=== PATIENT | male | born 1970 | race Caucasian/White ===

== ENCOUNTER 2020-10-13 15:44 | Observation (INO) | payer OTHER ==
[2020-10-13 16:26] LABS: Basophils # (A) 0.1 k/uL (0-0.2); Basophils % (A) 1 %; Eosinophils # (A) 0.3 k/uL (0-0.7); Eosinophils % (A) 3 %; HGB 14.9 gm/dL (13.0-17.5); Lymphocytes # (A) 3.2 k/uL (1.0-4.8); Lymphocytes % (A) 36 %; MCH 30.1 pg (25.0-35.0); MCHC 33.9 g/dL (31.0-37.0); MCV 88.9 fL (80.0-100.0); Mean Platelet Volume 7.6; Monocytes # (A) 0.5 k/uL (0-1.0); Monocytes % (A) 6 %; Neutrophils # (A) 4.8 k/uL (1.3-7.7); Neutrophils % (A) 53 %; Platelet Count 262 k/uL (150-450); RBC 4.95 m/uL (4.30-5.90); RDW 14.2 % (11.5-15.5); WBC 9.1 k/uL (3.8-10.6)
[2020-10-13] MEDS ORDERED: ASPIRIN 325 MG TAB PO STA (16:33)
--- NOTE | 2020-10-13 16:35 | ED ---
General Adult HPI - General Chief complaint: Dizziness Stated complaint: dizzy,SOB Time Seen by Provider: 10/13/20 15:56 Source: patient, RN notes reviewed, old records reviewed Mode of arrival: wheelchair Limitations: no limitations - History of Present Illness Initial comments: 50-year-old male presenting for evaluation of lightheadedness. Patient is 7 weeks status post stenting at outside facility. He's been on dual antiplatelet,and Coreg. He states that over the past several weeks his had medication issues, he stated he became ALLERGIC to ticagrelor, and has discontinued this approximately 48 hours ago. He also stopped his Coreg due to ALLERGIC symptoms. Patient states states he had difficulty breathing, facial swelling. He is currently only on aspirin. He denies worsening chest pain. He's had some chest tightness since his stent which occurred several weeks ago. He states he feels lightheaded and that he might pass out. He has not had any known loss of consciousness. He denies fever or chills. Denies cough or dyspnea. Denies nausea vomiting or diarrhea. - Related Data Home Medications Medication Instructions Recorded Confirmed Aspirin EC [Ecotrin Low Dose] 81 mg PO HS 10/13/20 10/13/20 Prasugrel [Effient] 10 mg PO HS 10/13/20 10/13/20 Ranolazine [Ranolazine ER] 333.3 mg PO BID 10/13/20 10/13/20 lisinopriL [Zestril] 2.5 mg PO HS 10/13/20 10/13/20 Allergies Allergy/AdvReac Type Severity Reaction Status Date / Time atorvastatin [From Lipitor] Allergy Unknown Verified 10/13/20 16:56 carvedilol [From Coreg] Allergy Unknown Verified 10/13/20 15:52 ticagrelor [From Brilinta] Allergy Unknown Verified 10/13/20 15:52 Review of Systems ROS Statement: Those systems with pertinent positive or pertinent negative responses have been documented in the HPI. ROS Other: All systems not noted in ROS Statement are negative. Past Medical History Past Medical History: Atrial Fibrillation, Hyperlipidemia, Hypertension, Myocardial Infarction ([place]) History of Any Multi-Drug Resistant Organisms: None Reported Past Surgical History: Heart Catheterization With Stent Additional Past Surgical History / Comment(s): MAKER STENT PLACED Past Psychological History: PTSD Smoking Status: Former smoker Past Alcohol Use History: Occasional Past Drug Use History: None Reported General Exam Limitations: no limitations General appearance: alert, in no apparent distress Head exam: Present: atraumatic, normocephalic Eye exam: Present: normal appearance, PERRL ENT exam: Present: normal exam Neck exam: Present: normal inspection. Absent: tenderness, meningismus Respiratory exam: Present: normal lung sounds bilaterally. Absent: respiratory distress, wheezes, rales Cardiovascular Exam: Present: regular rate, normal rhythm GI/Abdominal exam: Present: soft. Absent: distended, tenderness, guarding Extremities exam: Present: normal inspection, normal capillary refill. Absent: pedal edema, calf tenderness Neurological exam: Present: alert, oriented X3, CN II-XII intact. Absent: motor sensory deficit Psychiatric exam: Present: normal affect Skin exam: Present: warm, dry, intact. Absent: cyanosis, diaphoretic Course Vital Signs 10/13/20 10/13/20 15:47 16:51 Temperature 98.2 F Pulse Rate 72 65 Respiratory 16 18 Rate Blood Pressure 140/85 133/89 O2 Sat by Pulse 96 97 Oximetry EKG Findings - EKG Comments: EKG Findings:: EKG: Normal sinus rhythm, rate of 70, UT interval 158, QRS duration 88, QTC 427, no ST segment elevation Medical Decision Making - Medical Decision Making 50-year-old male presenting for evaluation of lightheadedness, chest pain, and inability to tolerate his medications that he had been prescribed status post stenting which occurred at an outside facility a proximally 7 weeks ago. He's been off of his beta adelaide and off of his Brinlinta, for the past 2 days. He is given aspirin and Plavix in the emergency department. He has EKG which shows sinus rhythm no ST segment elevation or definitive signs of ischemia. Chest x- rays negative for acute cardiopulmonary disease. He has a normal CBC, normal CMP, negative troponin. Chest x-ray is negative for acute cardiopulmonary disease. Patient will be kept in observation, while his antiplatelet medications were established, cardiology will be placed on consult. Echo will be obtained regarding his near syncope and lightheadedness. Case discussed with Dr. Tsai who will admit. - Lab Data Result diagrams: 10/13/20 16:18 10/13/20 16:18 Lab Results 10/13/20 10/13/20 10/13/20 Range/Units 16:18 16:18 16:18 WBC 9.1 (3.8-10.6) k/uL RBC 4.95 (4.30-5.90) m/uL Hgb 14.9 (13.0-17.5) gm/dL Hct 44.0 (39.0-53.0) % MCV 88.9 (80.0-100.0) fL MCH 30.1 (25.0-35.0) pg MCHC 33.9 (31.0-37.0) g/dL RDW 14.2 (11.5-15.5) % Plt Count 262 (150-450) k/uL MPV 7.6 Neutrophils % 53 % Lymphocytes % 36 % Monocytes % 6 % Eosinophils % 3 % Basophils % 1 % Neutrophils # 4.8 (1.3-7.7) k/uL Lymphocytes # 3.2 (1.0-4.8) k/uL Monocytes # 0.5 (0-1.0) k/uL Eosinophils # 0.3 (0-0.7) k/uL Basophils # 0.1 (0-0.2) k/uL PT 9.7 (9.0-12.0) sec INR 0.9 (<1.2) APTT 25.0 (22.0-30.0) sec Sodium 138 (137-145) mmol/L Potassium 4.3 (3.5-5.1) mmol/L Chloride 104 (98-107) mmol/L Carbon Dioxide 25 (22-30) mmol/L Anion Gap 9 mmol/L BUN 17 (9-20) mg/dL Creatinine 0.87 (0.66-1.25) mg/dL Est GFR (CKD-EPI)AfAm >90 (>60 ml/min/1.73 sqM) Est GFR (CKD-EPI)NonAf >90 (>60 ml/min/1.73 sqM) Glucose 91 (74-99) mg/dL Calcium 9.8 (8.4-10.2) mg/dL Magnesium 2.3 (1.6-2.3) mg/dL Total Bilirubin 0.4 (0.2-1.3) mg/dL AST 41 (17-59) U/L ALT 60 H (4-49) U/L Alkaline Phosphatase 64 (38-126) U/L Troponin I (0.000-0.034) ng/mL NT-Pro-B Natriuret Pep pg/mL Total Protein 7.6 (6.3-8.2) g/dL Albumin 4.5 (3.5-5.0) g/dL 10/13/20 10/13/20 Range/Units 16:18 16:18 WBC (3.8-10.6) k/uL RBC (4.30-5.90) m/uL Hgb (13.0-17.5) gm/dL Hct (39.0-53.0) % MCV (80.0-100.0) fL MCH (25.0-35.0) pg MCHC (31.0-37.0) g/dL RDW (11.5-15.5) % Plt Count (150-450) k/uL MPV Neutrophils % % Lymphocytes % % Monocytes % % Eosinophils % % Basophils % % Neutrophils # (1.3-7.7) k/uL Lymphocytes # (1.0-4.8) k/uL Monocytes # (0-1.0) k/uL Eosinophils # (0-0.7) k/uL Basophils # (0-0.2) k/uL PT (9.0-12.0) sec INR (<1.2) APTT (22.0-30.0) sec Sodium (137-145) mmol/L Potassium (3.5-5.1) mmol/L Chloride (98-107) mmol/L Carbon Dioxide (22-30) mmol/L Anion Gap mmol/L BUN (9-20) mg/dL Creatinine (0.66-1.25) mg/dL Est GFR (CKD-EPI)AfAm (>60 ml/min/1.73 sqM) Est GFR (CKD-EPI)NonAf (>60 ml/min/1.73 sqM) Glucose (74-99) mg/dL Calcium (8.4-10.2) mg/dL Magnesium (1.6-2.3) mg/dL Total Bilirubin (0.2-1.3) mg/dL AST (17-59) U/L ALT (4-49) U/L Alkaline Phosphatase (38-126) U/L Troponin I <0.012 (0.000-0.034) ng/mL NT-Pro-B Natriuret Pep 51 pg/mL Total Protein (6.3-8.2) g/dL Albumin (3.5-5.0) g/dL Disposition Clinical Impression: Near syncope, CAD (coronary artery disease) Disposition: ADMITTED IP TO THIS [facility] Condition: Stable Is patient prescribed a controlled substance at d/c from ED?: No Referrals: Maira Hogan MD [Primary Care Provider] - 1-2 days Decision to Admit Reason: Admit from EC Decision Date: 10/13/20 Decision Time: 17:40
--- NOTE | 2020-10-13 16:35 | XR ---
EXAMINATION TYPE: XR chest 2V DATE OF EXAM: 10/13/2020 COMPARISON: 10/05/2012. HISTORY: Shortness of breath. TECHNIQUE: Frontal and lateral views of the chest are obtained. FINDINGS: There is no focal air space opacity, pleural effusion, or pneumothorax seen. The cardiac silhouette size is within normal limits. The osseous structures are intact. IMPRESSION: No acute cardiopulmonary process.
[2020-10-13 16:39] LABS: ALT 60 U/L (4-49); AST 41 U/L (17-59); African American GFR (CKD) >90 (>60 ml/min/1.73 sqM); Albumin 4.5 g/dL (3.5-5.0); Alkaline Phosphatase 64 U/L (38-126); Anion Gap 9 mmol/L; Blood Urea Nitrogen 17 mg/dL (9-20); Calcium 9.8 mg/dL (8.4-10.2); Carbon Dioxide 25 mmol/L (22-30); Chloride 104 mmol/L (98-107); Glucose 91 mg/dL (74-99); Magnesium 2.3 mg/dL (1.6-2.3); Non-African American GFR(CKD) >90 (>60 ml/min/1.73 sqM); Potassium 4.3 mmol/L (3.5-5.1); Sodium 138 mmol/L (137-145); Total Bilirubin 0.4 mg/dL (0.2-1.3); Total Protein 7.6 g/dL (6.3-8.2)
[2020-10-13 16:44] LABS: INR 0.9 (<1.2); Prothrombin Time 9.7 sec (9.0-12.0)
[2020-10-13] MEDS ORDERED: CLOPIDOGREL 75 MG TAB PO STA (17:14)
[2020-10-13] MEDS ORDERED: NALOXONE 0.4 MG/ML 1 ML VIAL IV PRN (17:32)
[2020-10-13] MEDS ORDERED: ACETAMINOPHEN TAB 325 MG TAB PO PRN (17:32)
[2020-10-13] MEDS ORDERED: ASPIRIN 81 MG PO SCH (21:00)
--- NOTE | 2020-10-14 03:37 | P.HPIM ---
History of Present Illness H&P Date: 10/13/20 The patient is a 50-year-old male with a PMH of coronary artery disease status post PCI July 2020, A. fib (not on anticoagulation), hypertension, and hyperlipidemia who presented to the emergency room with multiple complaints. The patient reports that following his cardiac catheterization in July, that he was discharged home on Ranexa, Brilinta, aspirin, lisinopril 2.5, and carvedilol. After returning home, he noticed that each time he would take his carvedilol in the morning, that he would feel dizzy and lightheaded and fatigued. He subsequently stopped taking the carvedilol 3 days following discharge. He reports continued intermittent shortness of breath and lightheadedness which he initially attributed to Brilinta. During that time, he also took an old dose of lisinopril 20 mg ( by 6 months) for 3-4 days which also made him feel lightheaded. He subsequently went back to his original dose of 2.5 thereafter. He contacted his licensed reactor operator's office who switched his Brilinta to Effient. The patient reports that he continued having intermittent shortness of breath along wit facial and neck swelling which gradually worsened until he stopped all his medications 4 days ago. The patient however became concerned since he had been told that he needed to continue taking his antiplatelets due to his stent. He reports ongoing exertional dizziness, which resolves with rest. Denied additional complaints. Denied chest discomfort, nausea, vomiting, headaches, visual disturbances, palpitations, abdominal pain, diarrhea. He underwent an extensive evaluation in the emergency room which was all reviewed. EKG had revealed normal sinus rhythm at [address]/T-wave changes noted as reviewed by me. Chest x-ray was unremarkable. Laboratory evaluation was also reviewed and was remarkable for an ALT of 60 with troponin less than 0.012. Review of Systems Pertinent positives and negatives as discussed in HPI, a complete review of systems was performed and all other systems are negative. Past Medical History Past Medical History: Atrial Fibrillation, Hyperlipidemia, Hypertension, Myocar dial Infarction ([place]) History of Any Multi-Drug Resistant Organisms: None Reported Past Surgical History: Heart Catheterization With Stent Additional Past Surgical History / Comment(s): MAKER STENT PLACED Past Psychological History: PTSD Smoking Status: Former smoker Past Alcohol Use History: Occasional Past Drug Use History: None Reported Medications and Allergies Home Medications Medication Instructions Recorded Confirmed Type Aspirin EC [Ecotrin Low Dose] 81 mg PO HS 10/13/20 10/13/20 History Prasugrel [Effient] 10 mg PO HS 10/13/20 10/13/20 History Ranolazine [Ranolazine ER] 333.3 mg PO BID 10/13/20 10/13/20 History lisinopriL [Zestril] 2.5 mg PO HS 10/13/20 10/13/20 History Allergies Allergy/AdvReac Type Severity Reaction Status Date / Time atorvastatin [From Lipitor] Allergy Unknown Verified 10/13/20 16:56 carvedilol [From Coreg] Allergy Unknown Verified 10/13/20 15:52 ticagrelor [From Brilinta] Allergy Unknown Verified 10/13/20 15:52 Physical Exam Vitals: Vital Signs Temp Pulse Resp BP Pulse Ox 10/13/20 18:00 69 18 127/87 97 10/13/20 17:00 63 18 97 10/13/20 16:51 65 18 133/89 97 10/13/20 15:47 98.2 F 72 16 140/85 96 Intake and Output 10/13/20 10/13/20 10/13/20 06:59 14:59 22:59 Other: Weight 111.13 kg General: non toxic, no distress, appears at stated age, obese Derm: no unusual rashes/lesions no unusual ecchymoses, warm, dry Head: atraumatic, normocephalic, symmetric Eyes: EOMI, no lid lag, anicteric sclera, pupils equal round reactive to light ENT: Nose and ears atraumatic, no thrush, no pharyngeal erythema Neck: No thyromegaly, no cervical lymphadenopathy, trachea midline, supple Mouth: no lip lesion, mucus membranes moist Cardiovascular: S1S2 reg, no murmur, positive posterior tibial pulse bilateral, no edema, capillary refill less than 2 seconds Lungs: CTA bilateral, no rhonchi, no rales , no accessory muscle use Abdominal: soft, nontender to palpation, no guarding, no appreciable organomegaly, normal bowel sounds Ext: no gross muscle atrophy, muscle strength 5 out of 5 in all 4 extremities grossly, no contractures, Neuro: CN II-XI grossly intact, light touch intact all 4 extremities, finger to nose within normal limits, Psych: Alert, oriented, appropriate affect Results CBC & Chem 7: 10/13/20 16:18 10/13/20 16:18 Labs: Abnormal Lab Results - Last 24 Hours (Table) 10/13/20 Range/Units 16:18 ALT 60 H (4-49) U/L Assessment and Plan Plan: Shortness of breath, lightheadedness, unclear etiology -Possibly secondary to bradycardia secondary to beta-blockade vs side-effect of Renexa vs borderline BP -Cardiology consult -Continue Aspirin and Plavix for now -Hold off on remaining meds for now -Obtain Echo Facial swelling, concerning for angioedema -Hold off on ALISON-Is for now -Check CRP, ESR, C4 levels Coronary artery disease status post recent PCI -Continue with aspirin and Plavix Hypertension -Borderline BP -Hold off on any antihypertensives at this time DVT prophylaxis -IPCDs The patient is admitted with an anticipated less than 2 midnight stay for evaluation of dizziness CODE STATUS:Full Code Discussed with: brooks Anticipated discharge date: in am Anticipated discharge place: home A total of 40 minutes was spent on the care of this complex patient more than 50% of the time was spent in counseling and care coordination.
[2020-10-14] MEDS ORDERED: RANOLAZINE 1000 MG PO SCH (09:00)
[2020-10-14 09:31] LABS: C Reactive Protein 1.1 mg/dL (0.0-0.8)
--- NOTE | 2020-10-14 10:04 | P.CRDCN ---
History of Present Illness History of present illness: light headed and felt like he would pass out if he got up and moved more than 40 feet HISTORY OF PRESENTING ILLNESS This is a pleasant 50-year-old male past medical history significant for area artery disease status post recent PCI in the setting of an acute [place], hypertension, dyslipidemia and former nicotine dependence. He follows in the office with a tip printer in [place]. We have been asked to see in consultation for near syncope. The patient is somewhat of a poor historian. He is able to tell is that he recently had a heart attack and got a stent put in. He states he has had multiple episodes of feeling dizzy or lightheaded mostly with exertion. He states there was an episode about one month ago when he realized he was taking the wrong dose of his lisinopril. It is unclear exactly what was going on. The patient states he was prescribed 2.5 mg but was taking 20 mg. Then on he had a reaction to one of his medications. He states he felt swollen in his head near his cheondoism region and he felt like his throat was tight. He had no specific rash but felt overall general flushing. He states he has not ever actually passed out but he feels like he is going to. He states if he were to get up and walk the halls for 3-4 minutes he would start to feel lightheaded and have to sit down. He denies symptoms of chest pain or shortness of breath. He has no palpitations. DIAGNOSTICS EKG reveals sinus mechanism with no acute ST or T wave abnormalities noted. Telemetry tracings indicate sinus mechanism with no arrhythmia or pauses. Chest xray today for an acute cardiopulmonary process. Laboratory reviewed, CBC unremarkable, sodium 138, potassium 4.3, creatinine 0.87, magnesium 2.3, cardiac enzymes negative 3, proBNP 51 and CRP 1.1. Current cardiac medications include aspirin 81 mg daily, Effient 10 mg daily, Ranexa 333.3 mg twice a day and lisinopril 2.5 mg daily. REVIEW OF SYSTEMS At the time of my exam: CONSTITUTIONAL: Denies fever or chills. CARDIOVASCULAR: Denies chest pain, shortness of breath, orthopnea, PND or palpitations. RESPIRATORY: Denies cough. GASTROINTESTINAL: Denies abdominal pain, diarrhea, constipation, nausea or v omiting. MUSCULOSKELETAL: Denies myalgias. NEUROLOGIC: Denies numbness, tingling, headacbe or weakness. ENDOCRINE: Denies fatigue, weight change, polydipsia or polyurina. GENITOURINARY: Denies burning, hematuria or urgency with micturation. HEMATOLOGIC: Denies history of anemia or bleeding. PHYSICAL EXAMINATION Blood pressure 119/79 heart rate 71 afebrile and maintaining oxygen saturation on room air. CONSTITUTIONAL: No apparent distress. HEENT: Head is normocephalic. Pupils are equal, round. Sclerae anicteric. Mucous membranes of the mouth are moist. No JVD. No carotid bruit. CHEST EXAMINATION: Lungs are clear to auscultation. No chest wall tenderness is noted on palpation or with deep breathing. HEART EXAMINATION: Regular rate and rhythm. S1, S2 heard. No murmurs, gallops or rub. ABDOMEN: Soft, nontender. Positive bowel sounds. EXTREMITIES: 2+ peripheral pulses, no lower extremity edema and no calf tenderness. NEUROLOGIC EXAMINATION: Patient is awake, alert and oriented x3. ASSESSMENT Near syncope Coronary artery disease status post recent PCI Hypertension PLAN An acute coronary event has been ruled out. Telemetry tracings unremarkable for an acute flor-arrhythmia. Obtain records from his primary tip printer to clarify his history. Echocardiogram has been obtained and will be reviewed. Check d-dimer and subsequent CTA if abnormal. Overall the patient is stable from a cardiac perspective with no evidence of active cardiac ischemia. Recommend discharge and follow-up with his primary tip printer in the next 24-48 hours. Acute kindly for this consultation. Nurse Practitioner note has been reviewed, I agree with a documented findings and plan of care. Patient was seen and examined. Past Medical History Past Medical History: Atrial Fibrillation, Hyperlipidemia, Hypertension, Myocardial Infarction ([place]) Last Myocardial Infarction Date:: 2019 History of Any Multi-Drug Resistant Organisms: None Reported Past Surgical History: Heart Catheterization With Stent Additional Past Surgical History / Comment(s): MAKER STENT PLACED Date of Last Stent Placement:: 08/16/2020 Past Psychological History: PTSD Smoking Status: Former smoker Past Alcohol Use History: Occasional Past Drug Use History: None Reported Medications and Allergies Home Medications Medication Instructions Recorded Confirmed Type Aspirin EC [Ecotrin Low Dose] 81 mg PO HS 10/13/20 10/13/20 History Prasugrel [Effient] 10 mg PO HS 10/13/20 10/13/20 History Ranolazine [Ranolazine ER] 333.3 mg PO BID 10/13/20 10/13/20 History lisinopriL [Zestril] 2.5 mg PO HS 10/13/20 10/13/20 History Allergies Allergy/AdvReac Type Severity Reaction Status Date / Time atorvastatin [From Lipitor] Allergy Unknown Verified 10/13/20 16:56 carvedilol [From Coreg] Allergy Unknown Verified 10/13/20 15:52 ticagrelor [From Brilinta] Allergy Unknown Verified 10/13/20 15:52 Physical Exam Vitals: Vital Signs Temp Pulse Pulse Resp BP BP Pulse Ox 10/14/20 07:25 97.7 F 71 18 119/79 97 10/14/20 05:00 53 L 22 124/72 97 10/14/20 02:55 56 L 18 114/70 100 10/14/20 02:00 55 L 16 112/73 10/14/20 01:00 55 L 18 113/73 10/14/20 00:00 66 18 136/87 10/13/20 23:00 75 22 133/82 10/13/20 22:00 66 22 130/90 10/13/20 20:00 66 12 124/83 10/13/20 19:37 98 F 61 16 107/71 97 10/13/20 19:00 66 7 L 124/86 96 10/13/20 18:00 67 21 123/76 95 10/13/20 17:00 62 18 133/89 97 10/13/20 16:51 65 18 133/89 97 10/13/20 16:07 70 16 96 10/13/20 15:47 98.2 F 72 16 140/85 96 Intake and Output 10/13/20 10/14/20 10/14/20 22:59 06:59 14:59 Other: Weight 111.13 kg Results 10/13/20 16:18 10/13/20 16:18 Cardiac Enzymes 10/13/20 10/13/20 10/13/20 Range/Units 16:18 16:18 20:00 AST 41 (17-59) U/L Troponin I <0.012 <0.012 (0.000-0.034) ng/mL 10/13/20 Range/Units 22:33 AST (17-59) U/L Troponin I <0.012 (0.000-0.034) ng/mL Coagulation 10/13/20 Range/Units 16:18 PT 9.7 (9.0-12.0) sec APTT 25.0 (22.0-30.0) sec CBC 10/13/20 Range/Units 16:18 WBC 9.1 (3.8-10.6) k/uL RBC 4.95 (4.30-5.90) m/uL Hgb 14.9 (13.0-17.5) gm/dL Hct 44.0 (39.0-53.0) % Plt Count 262 (150-450) k/uL Comprehensive Metabolic Panel 10/13/20 Range/Units 16:18 Sodium 138 (137-145) mmol/L Potassium 4.3 (3.5-5.1) mmol/L Chloride 104 (98-107) mmol/L Carbon Dioxide 25 (22-30) mmol/L BUN 17 (9-20) mg/dL Creatinine 0.87 (0.66-1.25) mg/dL Glucose 91 (74-99) mg/dL Calcium 9.8 (8.4-10.2) mg/dL AST 41 (17-59) U/L ALT 60 H (4-49) U/L Alkaline Phosphatase 64 (38-126) U/L Total Protein 7.6 (6.3-8.2) g/dL Albumin 4.5 (3.5-5.0) g/dL Current Medications Generic Name Dose Route Start Last Admin Trade Name Freq PRN Reason Stop Dose Admin Acetaminophen 650 mg 10/13/20 17:32 Acetaminophen Tab 325 Mg Tab PO Q6HR PRN Mild Pain or Fever > 100.5 Aspirin 81 mg 10/13/20 21:00 10/13/20 22:09 Aspirin 81 Mg PO 81 mg HS RAZA Administration Naloxone HCl 0.2 mg 10/13/20 17:32 Naloxone 0.4 Mg/Ml 1 Ml Vial IV Q2M PRN Opioid Reversal Non-Formulary Medication 333.3 mg 10/14/20 09:00 Ranolazine [Ranolazine Er] PO BID RAZA Prasugrel 10 mg 10/14/20 21:00 Prasugrel 10 Mg Tab PO HS RAZA Intake and Output 10/13/20 10/14/20 10/14/20 22:59 06:59 14:59 Other: Weight 111.13 kg 10/13/20 16:18 10/13/20 16:18
--- NOTE | 2020-10-14 11:47 | P.DS ---
Providers Date of admission: 10/13/20 17:32 Expected date of discharge: 10/14/20 Attending physician: Salvatore Tsai MD Consults: 10/13/20 17:33 Consult Physician Routine Consulting Provider: Bryant Nunn Consult Reason/Comments: Near syncope Do you want consulting provider notified?: Yes Primary care physician: Maira Hogan MD Hospital Course: 1. Dyspnea 2. Facial Swelling 3. CAD s/p recent PCI 4. HTN 50 year old man with history of hypertension, recent PCI for CAD presented with dyspnea, lightheadedness and facial swelling. Pt is noted to be non-compliant w ith his medications due to these side effects. While in house, he was evaluated by cardiology who cleared the patient as he was not having ACS. His ASA/Effient were restarted. He had no events on telemetry. His lisinopril was stopped as this was thought to be the culprit of his dyspnea and facial swelling by mechanism of angioedema. On day of discharge, patient was back to his usual state of health, mild swelling in the uvula, but otherwise patent airway without stridor. Patient had been off his coreg due to dizziness, and was also noted to have borderline BP and bradycardia during hospital stay, therefore this was not continued on discharge. On discharge, he was placed on a holter monitor and instructed to follow up with primary sales commissions analyst within 24-48 hours. Assessment: Gen: awake, alert HEENT: normocephalic, atraumatic, good hearing acuity, moist mucous membranes, mild uvular swelling Resp: good air exchange, breathing comfortably with no accessory muscle use, clear to auscultation bilaterally, no stridor, no wheezes CVS: good distal perfusion x 4, regular rate and rhythm without murmurs GI: soft, NTTP, ND : no SPT, no CVAT, rodriges catheter not present MSK: no pitting edema, no clubbing Neuro: non-focal, moving all extremities Psych: cooperative, euthymic mood Patient Condition at Discharge: Good Plan - Discharge Summary Discharge Rx Participant: Yes New Discharge Prescriptions: Continue Ranolazine [Ranolazine ER] 333.3 mg PO BID Prasugrel [Effient] 10 mg PO HS Aspirin EC [Ecotrin Low Dose] 81 mg PO HS Discontinued lisinopriL [Zestril] 2.5 mg PO HS Discharge Medication List Aspirin EC [Ecotrin Low Dose] 81 mg PO HS 10/13/20 [History] Prasugrel [Effient] 10 mg PO HS 10/13/20 [History] Ranolazine [Ranolazine ER] 333.3 mg PO BID 10/13/20 [History] Follow up Appointment(s)/Referral(s): Maira Hogan MD [Primary Care Provider] - 1-2 days Alf Payton DO [REFERRING] - 1-2 Days Patient Instructions/Handouts: Chest Pain (DC) Discharge Disposition: HOME SELF-CARE
[2020-10-14 14:54] VITALS: BP 103/69; PULSE 89; RESP 16; TEMP 97.4
[2020-10-14] MEDS ORDERED: CLOPIDOGREL 75 MG TAB PO SCH (21:00)
[2020-10-14] MEDS ORDERED: PRASUGREL 10 MG TAB PO SCH (21:00)
== END 2020-10-14 16:15 | disposition home or self-care (01) ==
LOC: EC 15:44 → 6NMEDSUR 17:32
PROVIDERS: ADMIT Internal Medicine; ATTEND Internal Medicine
DX: R42 Dizziness and giddiness (principal); R06.00 Dyspnea, unspecified; R06.02 Shortness of breath; T44.7X6A Underdosing of beta-adrenoreceptor antagonists, initial encounter; I25.10 Atherosclerotic heart disease of native coronary artery without angina pectoris; I10 Essential (primary) hypertension; T78.3XXA Angioneurotic edema, initial encounter; R22.0 Localized swelling, mass and lump, head; R00.1 Bradycardia, unspecified; I48.91 Unspecified atrial fibrillation; E78.5 Hyperlipidemia, unspecified; I25.2 Old myocardial infarction; Z95.5 Presence of coronary angioplasty implant and graft; F43.10 Post-traumatic stress disorder, unspecified; Z87.891 Personal history of nicotine dependence; Z79.82 Long term (current) use of aspirin; Z79.899 Other long term (current) drug therapy; Z88.8 Allergy status to other drugs, medicaments and biological substances
CPT/HCPCS: 99285; 36415; 94660; 93005; 93270; 86160; 85379; 83880; 80053; 85652; 83735; 84484; 85025; 85610; 85730; 86140; 87635; 71046; G0378 ×2